=== PATIENT | female | born 1945 | race African-American/Black ===

== ENCOUNTER → 2024-09-24 | Day surgery (SDC) | payer MEDICARE, MEDICAID ==
[~2024-09-24] VITALS: Ht 162.6 cm; Wt 68.0 kg
[~2024-09-24] MED LIST: ASPI-1497 PO; ATOR20TA65 PO; BALANCED SALT IRRIG SOLN 15ML ONE; BALANCED SALT IRRIG SOLN COMB1 500ML OP NR; CALC-1249 PO; CYCLOPENTOLATE HCL 1% OPHTH DROPS 2ML LEFTEYE NR; FENTANYL CITRATE/PF 50MCG/ML 2ML VIAL ONE; GABA-529 PO; GLYCOPYRROLATE 0.2 MG/ML 2ML VIAL ONE; HYALURONATE SODIUM 10MG/ML 0.55ML SYRINGE IO ONE; LISI10TA26 PO; METO25TA6 PO; MIDAZOLAM HCL 2 MG/2 ML VIAL ONE; OLAN5TAB74 PO; PHENYLEPHRINE HCL 10% OPHTH DROPS 5ML LEFTEYE NR; PROP1DRO4 OP; PROPOFOL 200MG/20ML VIAL IV ONE; ROCURONIUM BROMIDE 10MG/ML VIAL 5ML IV ONE; SUGAMMADEX SODIUM 200MG/2ML VIAL IV ONE; TRAZ150T78 PO; TROPICAMIDE 1% OPHTH DROPS 15ML LEFTEYE NR; TRYPAN BLUE 0.5 ML DISP.SYRIN IO ONE
[2024-09-24] MEDS: LACTATED RINGERS 1,000 ML IV SCH (08:29)
== END | disposition home or self-care (01) ==
LOC: OR 06:59
PROVIDERS: ATTEND Ophthalmology
DX: H25.89 Other age-related cataract (principal); I10 Essential (primary) hypertension; E78.00 Pure hypercholesterolemia, unspecified; F41.9 Anxiety disorder, unspecified; F02.A18 Dementia in other diseases classified elsewhere, mild, with other behavioral disturbance; I69.398 Other sequelae of cerebral infarction; M15.0 Primary generalized (osteo)arthritis; F31.61 Bipolar disorder, current episode mixed, mild; F17.210 Nicotine dependence, cigarettes, uncomplicated; Z79.82 Long term (current) use of aspirin; Z79.899 Other long term (current) drug therapy; Z98.890 Other specified postprocedural states
CPT/HCPCS: 66984; 93005; V2632 ×2; J3010; J3490 ×4; J2250; J2704; Q9957